=== PATIENT | male | born 1955 | race African-American/Black ===

== ENCOUNTER 2019-05-13 10:28 | Outpatient (CLI) | payer OTHER, SELFPAY ==
--- NOTE | ~2019-05-13 | CT_ITS ---
EXAMINATION: CT lung screening DATE: 05/13/2019 10:54 INDICATION: Personal history of tobacco dependence TECHNIQUE: Computed tomography (CT) of the chest was performed without intravenous contrast. The dose -length product was 162.47 mGy-cm. Automated exposure control and iterative reconstruction technique were employed. COMPARISON: None FINDINGS: No significant pleural or pericardial effusion. Heart size is normal. No thoracic lymphaden opathy. Mild atherosclerosis of the aorta and coronary arteries. Heart size normal. The upper abdomen is unremarkable. There are a few calcified granulomas in the lung parenchyma. Small bleb in the righ t lower lobe medially. There are calcified left hilar lymph nodes, consistent with chronic granulomat ous disease. Small 2 mm left lower lobe nodule, image 75 which is not clearly calcified. Small ground glass nodule measuring 2-3 mm left upper lobe, image 58. There is a subsolid 4 mm fissural nodule, im age 73. No acute osseous abnormality. Mild thoracic spondylosis. Mild thoracic levoscoliosis. IMPRESSION: 1. Lung-RADS category 2: Benign appearance or behavior. Continue annual screening with noncontrast lo w-dose chest CT in 12 months. Reviewed, dictated and finalized at location B. [facility] IMPRESSION: 1. Lung-RADS category 2: Benign appearance or behavior. Continue annual screeni ng with noncontrast low-dose chest CT in 12 months.
== END 2019-05-13 10:29 | disposition home or self-care (01) ==
LOC: ANHIMG 10:33
PROVIDERS: Visit Provider Internal Medicine Critical Care Medicine
DX: J44.9 Chronic obstructive pulmonary disease, unspecified (principal)
CPT/HCPCS: G0297

== ENCOUNTER 2020-09-06 09:31 | Outpatient (RCR) | payer OTHER, SELFPAY | END 2020-09-06 23:59 | disposition home or self-care (01) | LOC: ANHAUDIO 09:31 | DX: Z46.1 Encounter for fitting and adjustment of hearing aid (principal) | CPT/HCPCS: 92593 ==

== ENCOUNTER 2021-02-12 08:40 | Outpatient (CLI) | payer MEDICARE, SELFPAY ==
--- NOTE | ~2021-02-12 | XR_ITS ---
EXAMINATION:XR cervical spine 4-5V DATE: 02/12/2021 09:07 INDICATION: Neck pain TECHNIQUE: AP, lateral, lateral swimmers and odontoid views of the cervical spine are provided. COMPARISON: None FINDINGS: There are 2 mm of retrolisthesis of C3 on C4. The odontoid is intact. No fracture is identi fied. There is severe loss of intervertebral disc space height at C3-4. The intervertebral disc space s are otherwise maintained. The vertebral body heights are normal. There is moderate multilevel facet joint osteoarthritis. Prevertebral soft tissues are normal. IMPRESSION: 1. Severe cervical spondylosis at C3-4. Reviewed, dictated and finalized at location A. [employer]
== END 2021-02-12 08:41 | disposition home or self-care (01) ==
LOC: ANHIMG 08:50
PROVIDERS: PCP Internal Medicine; Visit Provider Specialist
DX: M47.892 Other spondylosis, cervical region (principal)
CPT/HCPCS: 72050

== ENCOUNTER 2022-06-04 10:50 | Outpatient (RCR) | payer MEDICARE, SELFPAY | END 2022-06-04 23:59 | disposition home or self-care (01) | LOC: ANHAUDIO 10:50 | PROVIDERS: PCP Internal Medicine; Visit Provider Internal Medicine | DX: Z46.1 Encounter for fitting and adjustment of hearing aid (principal) | CPT/HCPCS: 92593 ==

== ENCOUNTER 2024-01-03 15:26 | Emergency (ER) | payer MEDICARE, SELFPAY ==
--- NOTE | ~2024-01-03 | XR_ITS ---
XR chest 2V DATE: 01/03/2024 15:45 INDICATION: Shortness of breath, worsening over the past 2 days TECHNIQUE: AP and lateral views COMPARISON: 05/13/2019 lung screening FINDINGS: Normal heart size. No hilar or mediastinal enlargement. No pulmonary infiltrate or consolid ation, pleural effusion or pulmonary mass congestion or pneumothorax. Mild thoracic levoscoliosis. IMPRESSION: No active cardiopulmonary disease Reviewed, dictated and finalized at location A.
--- NOTE | 2024-01-03 15:25 | ECG_ITS ---
Test Date: 2024-01-03 15:31:11 Measurements Intervals Freedom Rate: 71 P: 71 IN: 192 QRS: 32 QRSD: 109 T: 44 QT: 399 QTc: 436 Interpretive Statements SINUS RHYTHM No previous ECG available for comparison Electronically Signed On 01-04-2024 10:51:50 CDT by Jairo Cabrera M.D.
[2024-01-03 15:40] VITALS: BP 144/72; PULSE 82; RESP 20; TEMP 37.1; O2SAT 97
[2024-01-03 15:58] LABS: Basophils Percent Auto 0.3 % (0.2-1.2); Eosinophils Absolute Auto 0.2 K/mm3 (0-0.3); Eosinophils Percent Auto 3.4 % (0-4.4); Hematocrit 43.5 % (42.0-52.0); Hemoglobin 14.9 g/dL (14.0-18.0); Immature Granulocyte Absolute 0.01 K/mm3 (0.00-0.031); Immature Granulocyte Percent A 0.2 % (0-0.5); Lymphocytes Absolute Auto 2.75 K/mm3 (0.9-3.2); Lymphocytes Percent Auto 46.6 % (18.3-44.2); Mean Corpuscular HGB Conc 34.3 g/dl (32-36); Mean Corpuscular Hemoglobin 31.6 pg (26-34); Mean Corpuscular Volume 92.4 fl (80-100); Mean Platelet Volume 9.5 fl (7.4-10.4); Monocytes Absolute Auto 0.6 K/mm3 (0.1-0.6); Monocytes Percent Auto 10.2 % (2.6-8.5); Neutrophils Absolute Auto 2.3 K/mm3 (1.3-6.7); Neutrophils Percent Auto 39.3 % (45.5-73.1); Platelet Count Result 301 k/mm3 (150-375); Red Blood Count 4.71 M/mm3 (4.6-6.20); Red Cell Distribution Width 12.6 % (11.5-14.5); White Blood Count 5.9 K/mm3 (4.5-10.0)
[2024-01-03 16:00] VITALS: O2SAT 98
[2024-01-03 16:07] LABS: Alanine Aminotransferase 36 U/L (6-50); Albumin Level 4.3 g/dL (3.5-5.1); Alkaline Phosphatase 66 U/L (38-126); Anion Gap 21 mmol/L (4-12); Aspartate Amino Transferase 39 U/L (17-59); Bilirubin,Total 1.7 mg/dL (0.2-1.3); Blood Urea Nitrogen 12 mg/dL (9-20); Carbon Dioxide 20 mmol/L (22-30); Chloride 94 mmol/L (98-107); Estimated CRCL calculation 75 ml/min; Estimated Glomerular Filt Rate > 60; Glucose 133 mg/dL (65-110); Potassium 3.3 mmol/L (3.4-5.0); Sodium 135 mmol/L (137-145)
--- NOTE | 2024-01-03 16:27 | ED_ITS ---
HPI - SOB/Dyspnea General Chief Complaint: Shortness of Breath/Dyspnea Stated Complaint: sob 2-3d Time Seen by Provider: 01/03/24 15:42 Source: patient Mode of arrival: EMS Limitations: no limitations History of Present Illness HPI Narrative: This is a 68-year-old gentleman with history of hypertension, diabetes and COPD, brought in by EMS from home for shortness of breath. The patient states over the past few days, he has felt fatigued, myalgias and nasal congestion. He complains of intermittent nonproductive cough. He denies any known sick contacts or recent travel. He states he drank alcohol earlier today in attempt to alleviate his symptoms. He has no other complaints at this time. Related Data Allergies Allergy/AdvReac Type Severity Reaction Status Date / Time Penicillins Allergy Mild Verified 05/23/13 13:08 Review of Systems Review of Systems: All systems reviewed & are unremarkable except as noted in HPI and below PMFSH Past Medical History Medical History COPD (chronic obstructive pulmonary disease) Diabetes mellitus Hypertension Surgical History Surgical History No significant past surgical history Social History Social History Smoking status: Former smoker Alcohol intake: former Substance use: never Exam Narrative: GENERAL: Well-developed, well-nourished, and in no acute distress. HEAD: Normocephalic, atraumatic. EYES: PERRLA and EOMI. ENT: Bilateral middle turbinates inflamed, clear rhinorrhea, no epistaxis. Mucous membranes moist. Oropharynx without tonsillar hypertrophy exudate or other lesions. CHEST: Clear to auscultation. No respiratory distress. No wheezes rales or rhonchi HEART: Regular rate and rhythm. No murmur heard. Normal peripheral pulses. ABDOMEN: Soft, nontender, nondistended, normal active bowel sounds. EXTREMITIES: Normal range of motion. No edema. SKIN: Warm, dry, no rash. NEURO: Alert and oriented x3. No focal deficit. Moving all 4 limbs spontaneously PSYCH: Normal mood and affect. Course Course Emergency Course: 17:05 - CBC unremarkable. Chest x-ray negative for pneumonia. The patient tested negative for influenza, COVID and RSV. Chemistries demonstrate mild hypokalemia with potassium of 3.3. The patient has an anion gap of 21 with bicarb of 20. He states he drank alcohol to address symptoms prior to arrival today. I suspect this is the cause of his gap. The patient is otherwise hemodynamically stable and appears well aside from signs and symptoms of a viral upper respiratory infection. Will discharge with decongested medications and recommendation for primary care follow-up. I discussed the findings and recommendations with the patient and his spouse. Discussed return and emergency precautions including signs/symptoms of ACS and respiratory distress. The patient and his spouse voiced understanding and agreement with the plan. All questions answered to their satisfaction. Vital Signs Vital signs: Vital Signs Temperature 98.7 F 01/03/24 15:40 Pulse Rate 82 01/03/24 15:40 Respiratory Rate 20 01/03/24 15:40 Blood Pressure 144/72 H 01/03/24 15:40 Pulse Oximetry 97 01/03/24 15:40 Temperature 98.7 F 01/03/24 15:40 Pulse Rate 82 01/03/24 17:38 Respiratory Rate 19 01/03/24 17:38 Blood Pressure 118/66 01/03/24 17:38 Pulse Oximetry 98 01/03/24 17:38 Oxygen Delivery Room Air 01/03/24 16:00 MDM - SOB/Dyspnea MDM Narrative Medical decision making narrative: Plan: Labs, imaging, EKG, troponin, reassess Differential Diagnosis Differential diagnosis: Likely community acquired pneumonia and other (COVID, influenza, ACS, metabolic abnormality, alcohol intoxication, other) Lab Data 01/03/24 15:36 01/03/24 15:36 Labs: Lab Results 01/03/24 01/03/24 Range/Units 15:36 15:39 WBC 5.9 (4.5-10.0) K/mm3 RBC 4.71 (4.6-6.20) M/mm3 Hgb 14.9 (14.0-18.0) g/dL Hct 43.5 (42.0-52.0) % MCV 92.4 (80-100) fl MCH 31.6 (26-34) pg MCHC 34.3 (32-36) g/dl RDW 12.6 (11.5-14.5) % Plt Count 301 (150-375) k/mm3 MPV 9.5 (7.4-10.4) fl Immature Gran % (Auto) 0.2 (0-0.5) % Neut % (Auto) 39.3 L (45.5-73.1) % Lymph % (Auto) 46.6 H (18.3-44.2) % [place] % (Auto) 10.2 H (2.6-8.5) % Eos % (Auto) 3.4 (0-4.4) % Baso % (Auto) 0.3 (0.2-1.2) % Lymph # (Auto) 2.75 (0.9-3.2) K/mm3 [place] # (Auto) 0.6 (0.1-0.6) K/mm3 Eos # (Auto) 0.2 (0-0.3) K/mm3 Baso # (Auto) 0.0 (0.0-0.1) K/mm3 Abs Immat Gran (auto) 0.01 (0.00-0.031) K/mm3 Absolute Neuts (auto) 2.3 (1.3-6.7) K/mm3 Absolute Nucleated RBC 0.000 (0.0-0.012) K/mm3 Nucleated RBC % 0.0 (0.0-0.2) % Sodium 135 L (137-145) mmol/L Potassium 3.3 L (3.4-5.0) mmol/L Chloride 94 L (98-107) mmol/L Carbon Dioxide 20 L (22-30) mmol/L Anion Gap 21 H (4-12) mmol/L BUN 12 (9-20) mg/dL Creatinine 0.70 (0.7-1.3) mg/dL Estim Creat Clear Calc 75 ml/min Estimated GFR > 60 (59 - ) Glucose 133 H (65-110) mg/dL Calcium 9.0 (8.4-10.2) mg/dL Total Bilirubin 1.7 H (0.2-1.3) mg/dL AST 39 (17-59) U/L ALT 36 (6-50) U/L Alkaline Phosphatase 66 (38-126) U/L Troponin I < 0.012 (0.000-0.034) ng/mL Total Protein 7.0 (6.3-8.2) g/dL Albumin 4.3 (3.5-5.1) g/dL Influenza A (RT-PCR) Negative (Negative) Influenza B (RT-PCR) Negative (Negative) RSV (RT-PCR) Negative (Negative) SARS-CoV-2 RNA (RT-PCR) Negative (Negative) ECG Data EKG #1: Attestation: I personally reviewed and interpreted this ECG as follows: ECG completion date: 01/03/24 ECG completion time: 15:31 Prior ECG tracings: not available for review Interpretation: Sinus rhythm, rate 71, normal axis, no ST segment elevations or T-wave in versions concerning for ischemia, normal intervals with QTC of 436. Discharge Plan Discharge Clinical Impression: Hypokalemia, Upper respiratory infection, viral Patient Disposition: Home, Self-Care Condition: Stable Instructions: Antibiotic Form, Upper Respiratory Infection (ED) Additional Instructions: You were seen in the emergency department. An EKG and labs are not concerning for injury to the heart. Chest x-ray was not concerning for pneumonia. Your red blood cell white blood cell counts within normal limits. Your chemistries show mildly decreased potassium. I recommended decongestant medications, plenty of fluids and follow-up with your primary care doctor. If you develop new or worsening chest pain, shortness of breath, loss of consciousness, or if you have other emergent concerns for life, limb, or eyesight, return to the emergency department. Patient Language: Cambodian Prescriptions: New guaifenesin [Mucinex] 600 mg tablet extended release 12hr 600 mg PO Q12H PRN (Reason: congestion) Qty: 8 0RF cetirizine 10 mg tablet 10 mg PO DAILY PRN (Reason: allergy symptoms) Qty: 20 0RF Follow-up/Referrals: Juan,Petros Douglas MD [Primary Care Provider] - 2 Weeks Time of Disposition: 17:12
[2024-01-03 16:34] LABS: Influenza A QL RT-PCR Negative (Negative); Influenza B QL RT-PCR Negative (Negative); RSV RNA, RT-PCR Negative (Negative); SARS-CoV-2 RNA PCR Negative (Negative)
[2024-01-03 16:35] LABS: Troponin I < 0.012 ng/mL (0.000-0.034)
[2024-01-03 17:38] VITALS: BP 118/66; PULSE 82; RESP 19; O2SAT 98
== END 2024-01-03 17:32 | disposition home or self-care (01) ==
PROVIDERS: Emergency Medicine; Emergency Provider Preventive Medicine Aerospace Medicine; PCP Internal Medicine
DX: E87.6 Hypokalemia (principal); J06.9 Acute upper respiratory infection, unspecified; I10 Essential (primary) hypertension; E11.9 Type 2 diabetes mellitus without complications; J44.9 Chronic obstructive pulmonary disease, unspecified; Z20.822 Contact with and (suspected) exposure to COVID-19
CPT/HCPCS: 36415; 71046; 80053; 84484; 85025; 87637; 93005; 99284